=== PATIENT | male | born 1945 | race Caucasian/White ===

== ENCOUNTER → 2016-09-25 | Outpatient (CLI) | payer MEDICARE ==
--- NOTE | 2016-09-29 16:30 | RADRPT ---
PROCEDURE: Video swallow examination of the esophagus CLINICAL INDICATION: aspiration TECHNIQUE: Real time video fluoroscopy of the lateral neck was performed. The patient was given b arium in multiple different consistencies by the speech pathologist. Fluoroscopy time: 2.8 minutes COMPARISON: None. FINDINGS: Increased residuals are noted with puree consistency, mechanical soft, and regular consistency. The re is no evidence of laryngeal penetration or aspiration. IMPRESSION: Increased residuals without evidence of penetration or aspiration, as above. Please refer to the speech pathology notes for more information and recommendations. RPTAT: KK Physician Don Date Time Electronically viewed and signed by Physician Don on 09/29/2016 16:30 RA/
== END | disposition home or self-care (01) ==
LOC: RAD 12:10
PROVIDERS: ATTEND Internal Medicine
DX: R13.12 Dysphagia, oropharyngeal phase (principal)
CPT/HCPCS: 74230; 92611; G8996; G8997; G8998